=== PATIENT | female | born 1975 | race Caucasian/White ===

== ENCOUNTER 2016-12-27 07:07 | Inpatient (IN) | payer BC ==
[2016-12-27] VITALS (7 sets, daily range): BP systolic 106–123; BP diastolic 62–73; PULSE 76–87; TEMP 36.8–36.9; O2SAT 96–99; Ht 165.1 cm; Wt 89.2 kg
[~2016-12-27] VITALS: Ht 165.1 cm; Wt 89.2 kg
[~2016-12-27 07:07] MED LIST: CITA40TA12 PO; IBUP-1428 PO; INSPMPNVLG; NVLGI SC; SIMV20TA2 PO
[2016-12-27] MEDS ORDERED: SODIUM CHLORIDE 0.9% 1000ML 1,000 ML IV ONE ×2 (07:30→08:30)
[2016-12-27] MEDS ORDERED: ALBUT/IPRATROP 3MG/0.5MG NEB 3 ML VIAL INH STA (07:36)
[2016-12-27] MEDS ORDERED: ONDANSETRON INJ 2 MG/ML 2 ML VIAL IV STA (07:36)
[2016-12-27 07:55] LABS: BASO % 0.2 %; BASO ABS # 0.04 K/uL (0-0.2); COMPLETE YES; EOS % 0.5 %; HEMATOCRIT 42.2 % (37-47); IG% 0.3 %; LYMPH % 12.2 %; LYMPH ABS # 2.28 K/uL (1.2-3.4); MEAN CORPUSCULAR HEMOGLOBIN 31.3 pg (25-34); MEAN CORPUSCULAR HGB CONC 33.6 g/dl (32-36); MONO % 3.9 %; NEUT % 82.9 %; PLATELET COUNT 176 K/uL (130-400); RED BLOOD COUNT 4.54 M/uL (4.2-5.4); WHITE BLOOD COUNT 18.63 K/uL (4.8-10.8)
[2016-12-27] MEDS ORDERED: INSULIN HUMAN REGULAR PER UNIT 10 UNITS in SYRINGE 0 ML IV STA (08:03)
[2016-12-27 08:08] LABS: URINE APPEARANCE CLEAR (CLEAR); URINE BILIRUBIN NEG (NEG); URINE COLOR YELLOW; URINE NITRITE NEG (NEG); URINE SPECIFIC GRAVITY 1.034 (1.000-1.030); UROBILINOGEN NEG (NEG)
[2016-12-27 08:09] LABS: BUN/CREATININE RATIO 14.1 (10-20); CREATININE 1.1 mg/dl (0.60-1.20); MAGNESIUM 2.1 mg/dl (1.8-2.4); POTASSIUM 4.9 mmol/L (3.5-5.1)
[2016-12-27 08:12] LABS: PHOSPHORUS 3.2 mg/dl (2.5-4.9)
[2016-12-27 08:12] LABS: MANUAL MICROSCOPIC REQUIRED? NO; REVIEW REQ? NO
--- NOTE | 2016-12-27 08:20 | DIAGNOSTIC IMAGING REPORT ---
CHEST 2 VIEWS ROUTINE CLINICAL HISTORY: cough, wheezing HYPERGLYCEMIA COMPARISON STUDY: 10/01/2015 FINDINGS: The cardiac and mediastinal contours are normal. There is no evidence of focal pulmonary consolidation. There is no evidence of failure. No pleural effusions are visualized.[ IMPRESSION: No active disease in the chest. Electronically signed by: Cipriano Mcfarlane M.D. 12/27/2016 8:19 AM Dictated Date/Time: 12/27/2016 8:14 AM
[2016-12-27] MEDS ORDERED: PIPERACILLIN/TAZOBACTAM 4.5 GM/100ML D5W IV STA (08:27)
[2016-12-27] MEDS ORDERED: DAPTOMYCIN IV ONE (08:30)
[2016-12-27] MEDS ORDERED: SODIUM CHLORIDE 0.9% IV ONE (08:30)
[2016-12-27 08:46] LABS: BETA-HYDROXYBUTYRATE 29.15 mg/dL (0.2-2.81)
[2016-12-27 09:08] LABS: VEN BLD GAS O2 SATURATION < 60.0 %; VEN BLOOD GAS BASE EXCESS -7.5 mEq/L; VENOUS BLOOD GAS PCO2 44 mmHg (38.0-50.0); VENOUS BLOOD GAS PO2 32 mmHg
[2016-12-27] MEDS ORDERED: INSULIN IV INFUSION PROTOCOL STA (09:26)
[2016-12-27] MEDS ORDERED: SODIUM CHLORIDE 0.9% 1000ML 1,000 ML IV SCH (09:26)
[2016-12-27] MEDS ORDERED: MODERATE STRESS LEVEL ONE (09:30)
[2016-12-27] MEDS ORDERED: ACETAMINOPHEN 325 MG TAB PO PRN (09:30)
[2016-12-27] MEDS ORDERED: DKA GOAL RANGE 150-250 mg/dl 1 EA ONE (09:30)
[2016-12-27] MEDS ORDERED: PHARMACY GLYCEMIC MGMT CONSULT PRN (09:30)
--- NOTE | 2016-12-27 09:57 | History and Physical ---
History & Physical Date & Time of Service: Dec 27, 2016 at 09:45 Chief Complaint: Dka,Freq Urination,Pimentel,High Blood Sugar Primary Care Physician: Benigno Park M.D. History of Present Illness Source: patient, clinic records This is a 41 year old female with a PMH of type 1 DM on an insulin pump, hx. of tobacco use disorder with recent cessation about one week prior to arrival presents to the ER with elevated blood sugars, excessive urination, excessive thirst. Patient states that last evening her blood sugars were less than 200; and then a recheck later in the evening; her pump stated that the sugars were unreadable due to being too high. Denies feeling ill prior to this, but stated that she had been excessively urinating all night and very thirsty having to drink lots of water. Other than the polyuria and polydipsia, no other complaints at this time. Upon presentation, she was given 2L of fluid, given 10 units of regular insulin and her BSGs are still >400. Past Medical/Surgical History Medical Problems: (1) Bronchitis Status: Chronic (2) section Status: Resolved (3) Diabetes Status: Chronic (4) DKA (diabetic ketoacidoses) Status: Resolved (5) Hysterectomy Status: Resolved (6) Pneumonia Status: Chronic Family History FH: cancer FH: gallbladder disease FH: lung disease Social History Smoking Status: Former Smoker Marital Status: Occupational Status: unemployed Allergies Coded Allergies: Bupropion (Verified Allergy, Mild, ., 12/27/16) Home Medications Scheduled Citalopram Hydrobromide (Celexa), 40 MG PO DAILY Insulin Aspart (novoLOG INSULIN PUMP ), 1 EA N/A ACHS Simvastatin (Zocor), 20 MG PO DAILY Review of Systems Constitutional: No fever, No chills, No sweats, No weight loss, No weakness, No fatigue Eyes: No worsening of vision ENT: No hearing loss Respiratory: No cough, No sputum, No shortness of breath Cardiovascular: No chest pain, No edema Abdomen: + nausea, No pain, No vomiting, No diarrhea, No constipation Genitourinary - Female: + urinary frequency, No dysuria, No urinary urgency, No urinary incontinence, No urinary retention, No hematuria Neurologic: + numbness/tingling (numbness at L big toe) Endocrine: + excessive thirst, + excessive urination, No fatigue Hematologic / Lymphatic: No abnormal bleeding/bruising Integumentary: No rash, No new/changing skin lesions Allergic / Immunologic: No environmental allergies, No seasonal allergies Physical Exam Vital Signs Date Time Temp Pulse Resp B/P (MAP) Pulse Ox O2 Delivery O2 Flow Rate FiO2 12/27/16 09:23 99 Room Air 12/27/16 09:01 90 20 133/73 99 Room Air 12/27/16 08:48 37.1 12/27/16 07:09 36.6 85 16 143/81 97 Room Air General Appearance: no apparent distress Head: normocephalic, atraumatic Eyes: normal inspection ENT: hearing grossly normal Respiratory/Chest: chest non-tender, lungs clear, normal breath sounds, no respiratory distress, no accessory muscle use Cardiovascular: regular rate, rhythm, no edema, no gallop, no JVD, no murmur, normal peripheral pulses Abdomen/GI: normal bowel sounds, non tender, soft Back: no muscle spasm Extremities/Musculoskelatal: no calf tenderness, normal capillary refill, no pedal edema, + pertinent finding (+pump on her R upper tricep) Neurologic/Psych: 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 nml as tested, no motor/sensory deficits, alert, normal mood/affect, oriented x 3 Diagnostics Laboratory Results Results Past 24 Hours Test 12/27/16 07:23 12/27/16 07:30 12/27/16 07:35 12/27/16 08:45 Range/Units Bedside Glucose > 600 538 70-90 mg/dl White Blood Count 18.63 4.8-10.8 K/uL Red Blood Count 4.54 4.2-5.4 M/uL Hemoglobin 14.2 12.0-16.0 g/dL Hematocrit 42.2 37-47 % Mean Corpuscular Volume 93.0 80-100 fL Mean Corpuscular Hemoglobin 31.3 25-34 pg Mean Corpuscular Hemoglobin Concent 33.6 32-36 g/dl Platelet Count 176 130-400 K/uL Mean Platelet Volume 13.0 7.4-10.4 fL Neutrophils (%) (Auto) 82.9 % Lymphocytes (%) (Auto) 12.2 % Monocytes (%) (Auto) 3.9 % Eosinophils (%) (Auto) 0.5 % Basophils (%) (Auto) 0.2 % Neutrophils # (Auto) 15.44 1.4-6.5 K/uL Lymphocytes # (Auto) 2.28 1.2-3.4 K/uL Monocytes # (Auto) 0.72 0.11-0.59 K/uL Eosinophils # (Auto) 0.10 0-0.5 K/uL Basophils # (Auto) 0.04 0-0.2 K/uL RDW Standard Deviation 43.5 36.4-46.3 fL RDW Coefficient of Variation 12.7 11.5-14.5 % Immature Granulocyte % (Auto) 0.3 % Immature Granulocyte # (Auto) 0.05 0.00-0.02 K/uL Sodium Level 124 136-145 mmol/L Potassium Level 4.9 3.5-5.1 mmol/L Chloride Level 92 98-107 mmol/L Carbon Dioxide Level 18 21-32 mmol/L Anion Gap 14.0 3-11 mmol/L Blood Urea Nitrogen 16 7-18 mg/dl Creatinine 1.10 0.60-1.20 mg/dl Est Creatinine Clear Calc Drug Dose 72.5 ml/min Estimated GFR () 71.2 Estimated GFR (Non- 61.4 BUN/Creatinine Ratio 14.1 10-20 Random Glucose 718 70-99 mg/dl Calcium Level 9.0 8.5-10.1 mg/dl Phosphorus Level 3.2 2.5-4.9 mg/dl Magnesium Level 2.1 1.8-2.4 mg/dl Total Bilirubin 0.7 0.2-1 mg/dl Direct Bilirubin 0.2 0-0.2 mg/dl Aspartate Amino Transf (AST/SGOT) 13 15-37 U/L Alanine Aminotransferase (ALT/SGPT) 15 12-78 U/L Alkaline Phosphatase 60 45-117 U/L Total Creatine Kinase 71 26-192 U/L Total Protein 7.0 6.4-8.2 gm/dl Albumin 4.0 3.4-5.0 gm/dl Beta-Hydroxybutyric Acid 29.15 0.2-2.81 mg/dL Urine Color YELLOW Urine Appearance CLEAR CLEAR Urine pH 5.0 4.5-7.5 Urine Specific [place] 1.034 1.000-1.030 Urine Protein NEG NEG Urine Glucose (UA) 3+ NEG Urine Ketones 2+ NEG Urine Occult Blood NEG NEG Urine Nitrite NEG NEG Urine Bilirubin NEG NEG Urine Urobilinogen NEG NEG Urine Leukocyte Esterase NEG NEG Test 12/27/16 08:53 12/27/16 08:58 12/27/16 08:59 12/27/16 09:12 Range/Units Venous Blood pH 7.26 7.36-7.41 Venous Blood Partial Pressure CO2 44 38.0-50.0 mmHg Venous Blood Partial Pressure O2 32 mmHg Venous Blood HCO3 19 mmol/L Venous Blood Oxygen Saturation < 60.0 % Venous Blood Base Excess -7.5 mEq/L Bedside Glucose 510 490 473 70-90 mg/dl Test 12/27/16 09:26 12/27/16 09:28 Range/Units Bedside Glucose 432 70-90 mg/dl Microbiology Results 12/27/16 Blood Culture, Received Pending 12/27/16 Blood Culture, Received Pending Diagnostic Radiology CHEST 2 VIEWS ROUTINE CLINICAL HISTORY: cough, wheezing HYPERGLYCEMIA COMPARISON STUDY: 10/01/2015 FINDINGS: The cardiac and mediastinal contours are normal. There is no evidence of focal pulmonary consolidation. There is no evidence of failure. No pleural effusions are visualized.[ IMPRESSION: No active disease in the chest. EKG Normal sinus rhythm Normal ECG Impression Assessment and Plan This is a 41 year old female with a PMH of type 1 diabetes on an insulin pump - presents with DKA Diabetic Ketoacidosis patient presents with BSGs >600, serum and urinary ketones, +acidosis on ABG, mildly elevated anion gap insulin pump is turned off for now she has been given 2L of fluid in the ER given 10 units of regular insulin will start an insulin pump monitor PRP, Mg, Phos, and venous pH q2 hours for now start fluids, NS + 20meq KCl at 150mL/hr once anion gap closes, we can start clears and advance as tolerated goal BSGs 150-250 pharmacy glycemic control to help transition from insulin drip back to her pump check Ha1c diabetic education Leukocytosis this seems more likely due to significant dehydration and volume depletion CXR is negative UA shows no sign of infection blood cultures pending received Dapto + Zosyn in the ED will hold off on abx. and recheck CBC after fluid resuscitation DVT ppx subq heparin FULL CODE Advanced Directives Existing Living Will: No Existing Power of Bar Examiner: No VTE Prophylaxis VTE Risk Assessment Done? Y/N: Yes Risk Level: Moderate
[2016-12-27 10:11] LABS: ALLEN TEST POS (POS); ARTERIAL BLD GAS O2 SATURATION 98.7 % (90-95); ARTERIAL BLOOD GAS BASE EXCESS -8.3 mEq/L (-9-1.8); ARTERIAL BLOOD GAS HCO3 16 mmol/L (19-24); ARTERIAL BLOOD GAS PO2 126 mm/Hg (80-95); ARTERIAL BLOOD GAS pH 7.36 (7.35-7.45); O2 ADMINISTRATION RA
[2016-12-27] MEDS ORDERED: GLUCOSE 40% GEL 15 GM TUBE PO PRN (10:15)
[2016-12-27] MEDS ORDERED: GLUCAGON FOR INJ 1 MG VIAL SQ PRN (10:15)
[2016-12-27] MEDS ORDERED: GLUCOSE 10 TABS/TUBE PO PRN (10:15)
[2016-12-27] MEDS ORDERED: DEXTROSE 50% 50 ML SYR IV PRN (10:15)
[2016-12-27] MEDS ORDERED: INSULIN HUMAN REGULAR IV BOLUS 2 UNIT in SYRINGE 0 ML IV SCH (10:30)
[2016-12-27] MEDS: INSULIN REGULAR 250 UNITS in SODIUM CHLORIDE 0.9% 250ML 250 ML IV SCH ×2 (10:31→15:33)
[2016-12-27 10:46] LABS: PREG INTERNAL NEGATIVE QC NEG CLEAR BACKGROUND; PREG INTERNAL POSITIVE QC POS CONTROL LINE
[2016-12-27 11:00] LABS: ESTIMATED AVERAGE GLUCOSE 200 mg/dl; HA1C FLAG Normal (Normal)
[2016-12-27] MEDS ORDERED: PENDING D5 1/2NS+20mEq KCL IVF SCH (11:00)
[2016-12-27] MEDS: PENDING NSS+20mEq KCL IVF SCH ×2 (11:00→13:00)
[2016-12-27] MEDS: INSULIN ASPART 100 UNITS/ML 3 ML PEN SC SCH ×2 (13:00→18:06)
[2016-12-27 13:01] LABS: BUN/CREATININE RATIO 12.7 (10-20); CALCIUM 7.8 mg/dl (8.5-10.1); PHOSPHORUS 1.6 mg/dl (2.5-4.9); POTASSIUM 4.1 mmol/L (3.5-5.1)
[2016-12-27] MEDS ORDERED: D5W AND 1/2NSS + 20MEQ KCL 1,000 ML IV SCH (13:30)
[2016-12-27 14:27] LABS: HEMATOCRIT 34.9 % (37-47); MEAN CELL VOLUME 91.1 fL (80-100); MEAN CORPUSCULAR HEMOGLOBIN 30.8 pg (25-34); MEAN CORPUSCULAR HGB CONC 33.8 g/dl (32-36); MEAN PLATELET VOLUME 11.8 fL (7.4-10.4); PLATELET COUNT 139 K/uL (130-400); RED BLOOD COUNT 3.83 M/uL (4.2-5.4); WHITE BLOOD COUNT 9.15 K/uL (4.8-10.8)
[2016-12-27] MEDS ORDERED: SODIUM PHOSPHATE 3 MMOL/1 ML INFUSION IV STA (14:58)
[2016-12-27] MEDS ORDERED: SODIUM PHOSPHATE INJ 15 MMOL in SODIUM CHLORIDE 0.9% 250ML 250 ML IV SCH (15:30)
--- NOTE | 2016-12-27 15:30 | Pharmacy Progress Note ---
Glycemic Control Intl Consult Date of Service Dec 27, 2016. Scope Glycemic Pharmacist consulted by Dr Aly on 12/27/16 for glycemic control and to write orders per [facility] inpatient glycemic control protocol Objective Weight (Kilograms): 88.500 Accuchecks BSG (last 24hrs): Test 12/27/16 07:23 12/27/16 07:30 12/27/16 08:45 12/27/16 08:59 Bedside Glucose > 600 mg/dl (70-90) 538 mg/dl (70-90) 490 mg/dl (70-90) Random Glucose 718 mg/dl (70-99) Test 12/27/16 09:12 12/27/16 09:28 12/27/16 09:57 12/27/16 10:23 Bedside Glucose 473 mg/dl (70-90) 432 mg/dl (70-90) 409 mg/dl (70-90) 406 mg/dl (70-90) Test 12/27/16 10:47 12/27/16 11:06 12/27/16 12:21 Bedside Glucose 393 mg/dl (70-90) 334 mg/dl (70-90) Random Glucose 275 mg/dl (70-99) Laboratory Data (last 24hrs) Test 12/27/16 07:30 12/27/16 12:21 12/27/16 14:03 Anion Gap 14.0 mmol/L 7.0 mmol/L BUN/Creatinine Ratio 14.1 12.7 Blood Urea Nitrogen 16 mg/dl 13 mg/dl Creatinine 1.10 mg/dl 1.00 mg/dl Hemoglobin A1c 8.6 % Potassium Level 4.9 mmol/L 4.1 mmol/L Sodium Level 124 mmol/L 136 mmol/L White Blood Count 18.63 K/uL 9.15 K/uL Red Blood Count 4.54 M/uL Hemoglobin 14.2 g/dL Hematocrit 42.2 % Mean Corpuscular Volume 93.0 fL Mean Corpuscular Hemoglobin 31.3 pg Mean Corpuscular Hemoglobin Concent 33.6 g/dl Platelet Count 176 K/uL Mean Platelet Volume 13.0 fL Neutrophils (%) (Auto) 82.9 % Lymphocytes (%) (Auto) 12.2 % Monocytes (%) (Auto) 3.9 % Eosinophils (%) (Auto) 0.5 % Basophils (%) (Auto) 0.2 % Neutrophils # (Auto) 15.44 K/uL Lymphocytes # (Auto) 2.28 K/uL Monocytes # (Auto) 0.72 K/uL Eosinophils # (Auto) 0.10 K/uL Basophils # (Auto) 0.04 K/uL HbA1c Test 12/27/16 07:30 Hemoglobin A1c 8.6 % (4.5-5.6) H Recent Pertinent Medications Outpatient Anti-diabetic Regimen: * Novolog pump * Basal rate: 1.35 units/hr * Bolus: CF 35 from 1700 - 0000, CF 40 from [id number] * Goal range: 80-140 mg/dL * pt reports good BSG control the previous 48 hour prior to admission The patient is currently receiving: * IV insulin infusion Risk Factors for Insulin Resistance: * Infection: Dapto + Zosyn in ER * IVF: D5 1/2 NS + 20 meq KCL @ 150 ml/hr Assessment & Plan ASSESSMENT: * 41 yr old T1DM female on Novolog insulin pump as an outpatient admitted with DKA. * BSG > 600 mg/dL upon arrival, AG elevated (14), betahydroxybutyric acid elevated (29), 2+ ketones in urine * Patient was started on an IV insulin infusion in the ER. Pharmacy was consulted to help transition from insulin infusion back to insulin pump. PLAN FOR INPATIENT GLYCEMIC CONTROL: * Continue IV insulin infusion per moderate stress as previously ordered * Will likely transition back to Novolog pump on 9/2 am * Please note that the plan above was derived based on current level of insulin resistance and hospital stress. These recommendations are appropriate for inpatient admission only. Plan of care upon discharge will need to be reassessed to avoid potential outpatient hypo/hyperglycemia. Thank you.
--- NOTE | 2016-12-27 15:35 | EMERGENCY ROOM VISIT NOTE ---
ED Visit Note First contact with patient: 07:16 Chief Complaint: My blood sugars over 400. History of Present Illness: Ms. Boothe is a 41-year-old white female who ambulates into the ED complaining of hyperglycemia. Historically patient reports she is a type I diabetic and has been so since she' s been at teen. Patient reports she's been feeling well over the last few days and admits to stop smoking tobacco last week. She reports she went to bed at 8:00 last night and before bedtime she checked her blood sugar and it was 125. She received notification from her insulin pump at approximately 1 PM that her blood sugar was elevated and recommended that 7 units of NovoLog be taken. She reports at that time she felt like she was thirsty, her mouth was dry. She did take insulin go back to bed. Once again she was awoken from sleep from notification of her insulin pump that her sugar was over 400 and was recommended that she take 12 units of insulin; she reports he took 12 units of NovoLog and once again went back to bed. She got up for work at approximately 5 PM and once again the glucometer reading was HIGH and she took 10 additional units of NovoLog. She reports she is not able to control her blood sugar. Her current symptoms include dry mouth, increased urination, nausea and a mild headache. She describes her head as a throbbing sensation. She does report her headaches global but more pronounced in the bifrontal area. She rates her discomfort 5/ 10. Her pain is nonradiating. She is not identified any aggravating or alleviating factors related to the pain. She has not taken any medications for her pain prior to arrival at the hospital. Patient denies any associated symptoms including dizziness, lightheadedness, abnormal neurological symptoms, recent head trauma, neck pain/stiffness, chest pain, shortness of breath, abdominal pain, extremity pain, joint pains, diarrhea , constipation, urinary symptoms, hematuria. Review of Systems: As noted above in history of present illness. All body systems were reviewed and found to be negative as noted above. Past Medical History: As previously noted, bronchitis, pneumonia, status post section and hysterectomy. Current Medications: Medications Dose Route/Sig Max Daily Dose Days Date Category Celexa (Citalopram Hydrobromide) 40 Mg Tab 40 Mg PO DAILY 10/02/15 Reported Zocor (Simvastatin) 20 Mg Tab 20 Mg PO DAILY 10/02/15 Reported novoLOG INSULIN PUMP (Insulin Aspart) 1 Ea Inj 1 Ea N/A ACHS 10/06/13 Rx Allergies to Medications: Bupropion. Social History: Patient is currently employed; she feels safe in her home environment; she denies tobacco use. Physical Examination: Vital Signs: Date Time Temp Pulse Resp B/P (MAP) Pulse Ox O2 Delivery O2 Flow Rate FiO2 12/27/16 09:23 99 Room Air 12/27/16 09:01 90 20 133/73 99 Room Air 12/27/16 08:48 37.1 12/27/16 07:09 36.6 85 16 143/81 97 Room Air GENERAL: 41-year-old female in mild to moderate distress due to pain, nontoxic- appearing, afebrile and hemodynamically stable. NEUROLOGICAL: Awake, alert and oriented to person, place and time. Answering questions appropriately and following commands. Normal gait. Good hand eye coordination. No focal motor or sensory deficits. SKIN: Warm, dry and pink. No soft tissue eruptions or trauma noted. HEENT: Atraumatic and normocephalic. PERRLA. Sclera white and conjunctiva pink. No drainage from naris. Oral cavity and lips are dry. Airway is patent. Pharynx is nonerythematous or edematous. Speech normal. No lymphadenopathy. Trachea midline. No jugular venous distention. BACK: No tenderness over the bony spine. No CVA tenderness. THORAX: Lungs sounds show scattered wheezing and slight decreased air movement in the right lower lung. Symmetrical chest wall movements. No rales or rhonchi. HEART: Regular rate and rhythm. No gallops, rubs or murmurs are appreciated. ABDOMEN: Flat, soft and nontender. Positive bowel sounds in all quadrants. No guarding, rigidity or organomegaly. EXTREMITIES: Moves all extremities well on command and with purpose. All distal neurovascular statuses are intact and equal bilaterally. ED Course: Patient is assessed as noted above. Patient's medication list was reviewed. Laboratory Testing: Test 12/27/16 07:23 12/27/16 07:30 12/27/16 07:35 12/27/16 08:45 Range/Units Bedside Glucose > 600 538 70-90 mg/dl White Blood Count 18.63 4.8-10.8 K/uL Red Blood Count 4.54 4.2-5.4 M/uL Hemoglobin 14.2 12.0-16.0 g/dL Hematocrit 42.2 37-47 % Mean Corpuscular Volume 93.0 80-100 fL Mean Corpuscular Hemoglobin 31.3 25-34 pg Mean Corpuscular Hemoglobin Concent 33.6 32-36 g/dl Platelet Count 176 130-400 K/uL Mean Platelet Volume 13.0 7.4-10.4 fL Neutrophils (%) (Auto) 82.9 % Lymphocytes (%) (Auto) 12.2 % Monocytes (%) (Auto) 3.9 % Eosinophils (%) (Auto) 0.5 % Basophils (%) (Auto) 0.2 % Neutrophils # (Auto) 15.44 1.4-6.5 K/uL Lymphocytes # (Auto) 2.28 1.2-3.4 K/uL Monocytes # (Auto) 0.72 0.11-0.59 K/uL Eosinophils # (Auto) 0.10 0-0.5 K/uL Basophils # (Auto) 0.04 0-0.2 K/uL RDW Standard Deviation 43.5 36.4-46.3 fL RDW Coefficient of Variation 12.7 11.5-14.5 % Immature Granulocyte % (Auto) 0.3 % Immature Granulocyte # (Auto) 0.05 0.00-0.02 K/uL Sodium Level 124 136-145 mmol/L Potassium Level 4.9 3.5-5.1 mmol/L Chloride Level 92 98-107 mmol/L Carbon Dioxide Level 18 21-32 mmol/L Anion Gap 14.0 3-11 mmol/L Blood Urea Nitrogen 16 7-18 mg/dl Creatinine 1.10 0.60-1.20 mg/dl Est Creatinine Clear Calc Drug Dose 72.5 ml/min Estimated GFR () 71.2 Estimated GFR (Non- 61.4 BUN/Creatinine Ratio 14.1 10-20 Random Glucose 718 70-99 mg/dl Estimated Average Glucose 200 mg/dl Hemoglobin A1c 8.6 4.5-5.6 % Calcium Level 9.0 8.5-10.1 mg/dl Phosphorus Level 3.2 2.5-4.9 mg/dl Magnesium Level 2.1 1.8-2.4 mg/dl Total Bilirubin 0.7 0.2-1 mg/dl Direct Bilirubin 0.2 0-0.2 mg/dl Aspartate Amino Transf (AST/SGOT) 13 15-37 U/L Alanine Aminotransferase (ALT/SGPT) 15 12-78 U/L Alkaline Phosphatase 60 45-117 U/L Total Creatine Kinase 71 26-192 U/L Total Protein 7.0 6.4-8.2 gm/dl Albumin 4.0 3.4-5.0 gm/dl Beta-Hydroxybutyric Acid 29.15 0.2-2.81 mg/dL Human Chorionic Gonadotropin, Qual NEG NEG Urine Color YELLOW Urine Appearance CLEAR CLEAR Urine pH 5.0 4.5-7.5 Urine Specific [place] 1.034 1.000-1.030 Urine Protein NEG NEG Urine Glucose (UA) 3+ NEG Urine Ketones 2+ NEG Urine Occult Blood NEG NEG Urine Nitrite NEG NEG Urine Bilirubin NEG NEG Urine Urobilinogen NEG NEG Urine Leukocyte Esterase NEG NEG Test 12/27/16 08:53 12/27/16 08:59 12/27/16 09:12 12/27/16 09:28 Range/Units Venous Blood pH 7.26 7.36-7.41 Venous Blood Partial Pressure CO2 44 38.0-50.0 mmHg Venous Blood Partial Pressure O2 32 mmHg Venous Blood HCO3 19 mmol/L Venous Blood Oxygen Saturation < 60.0 % Venous Blood Base Excess -7.5 mEq/L Bedside Glucose 490 473 432 70-90 mg/dl Blood Culture: Pending Chest X-Ray: Read by myself and the radiologist showing no acute infiltrates, effusions or pneumothorax. Normal heart silhouette and bony anatomy. EKG: Was read by myself and reviewed with Dr. Brown; shows normal sinus rhythm with a ventricular rate of 80 bpm. Normal axis, intervals and complexes. No acute ST changes indicating ischemia, injury or infarction. Patient was hydrated with at least 2 L of normal saline and she received an albuterol/Atrovent nebulizer breathing treatment for her wheezing, 4 mg of Zofran IV for nausea, 10 units of Regular Insulin IV for her hyperglycemia and to cover for possible infections related to her leukocytosis she was given 4.5 g of Zosyn and 530 mg of daptomycin IV. Patient was reassessed multiple times to her stay in emergency department; after her breathing treatment and lungs are reassessed and wheezing was no longer present and air movement in all ortiz increased but also in her bases. Patient's case was reviewed with Dr. Brown; we agreed on diagnostic approach , treatment, disposition and plan. Patient's case was consulted with case management and Dr. Zeng, hospitalist , for medical observation/admission. Patient was educated about today's findings. Clinical Impression: Diabetic ketoacidosis. Leukocytosis. Decision-Making: Initially my differential diagnosis I considered pneumonia, metabolic acidosis, septic shock, alcohol ketoacidosis, electrolyte abnormalities and other causes. Disposition and Plan: Patient be brought in the hospital for observation/ admission by the [facility] hospitalist; please see their notes and orders for final disposition and plan.
[2016-12-27 15:50] LABS: INR 0.9 (0.9-1.1); PROTHROMBIN TIME (PATIENT) 10.1 SECONDS (9.0-12.0)
[2016-12-27 16:45] LABS: BUN/CREATININE RATIO 10.8 (10-20); CALCIUM 7.9 mg/dl (8.5-10.1); CREATININE 0.92 mg/dl (0.60-1.20); MAGNESIUM 2.1 mg/dl (1.8-2.4); POTASSIUM 4.7 mmol/L (3.5-5.1)
[2016-12-27 16:51] LABS: PHOSPHORUS 2.4 mg/dl (2.5-4.9)
[2016-12-27] MEDS ORDERED: INSULIN ASPART 100 UNITS/ML VIAL SC PRN (18:15)
[2016-12-27] MEDS: HEPARIN SOD 5000 UNIT/0.5 ML CARP SQ SCH (20:56)
[2016-12-27] MEDS ORDERED: NovoLOG INSULIN PUMP SCH (21:00)
[2016-12-27 21:10] LABS: BUN/CREATININE RATIO 11.5 (10-20); CALCIUM 7.9 mg/dl (8.5-10.1); CREATININE 1.1 mg/dl (0.60-1.20)
[2016-12-27 21:11] LABS: PHOSPHORUS 2.7 mg/dl (2.5-4.9)
[2016-12-27] MEDS: NovoLOG INSULIN PUMP SCH (23:58)
[2016-12-28] VITALS: O2SAT 96
[2016-12-28 00:12] LABS: BUN/CREATININE RATIO 14.7 (10-20); CALCIUM 8.1 mg/dl (8.5-10.1); CREATININE 0.85 mg/dl (0.60-1.20); POTASSIUM 3.9 mmol/L (3.5-5.1)
[2016-12-28 04:00] VITALS: O2SAT 96
[2016-12-28] MEDS: NovoLOG INSULIN PUMP SCH (04:00)
[2016-12-28 04:32] VITALS: BP 132/76; PULSE 90; TEMP 36.7; O2SAT 96
[2016-12-28 04:40] LABS: BUN/CREATININE RATIO 14.2 (10-20); CALCIUM 8.1 mg/dl (8.5-10.1); CREATININE 0.74 mg/dl (0.60-1.20); POTASSIUM 4.1 mmol/L (3.5-5.1)
[2016-12-28] MEDS: HEPARIN SOD 5000 UNIT/0.5 ML CARP SQ SCH (05:59)
[2016-12-28 07:33] VITALS: BP 117/70; PULSE 73; TEMP 36.8; O2SAT 92
[2016-12-28 08:00] VITALS: O2SAT 94
[2016-12-28] MEDS ORDERED: FLUCONAZOLE 50 MG TAB PO ONE (08:00)
--- NOTE | 2016-12-28 08:40 | Progress Note ---
Subjective Date of Service: Dec 28, 2016. Subjective Pt evaluation today including: conversation w/ patient, physical exam, lab review, review of studies, review of inpatient medication list Saw/examined the patient in room 282 Patient is doing well; no problems/issues to note Patient has been transitioned to insulin pump - it is functioning well BSGs much better controlled now Denies any nausea/vomiting, no urinary symptoms, no fevers/chills - mild ongoing cough since smoking cessation about 1 week prior Problem List Medical Problems: (1) Hyperglycemia Status: Acute Review of Systems Constitutional: No fever, No chills, No weakness Respiratory: No cough, No sputum, No shortness of breath Cardiac: No chest pain Abdomen: No pain, No nausea, No vomiting, No diarrhea Heme: No abnormal bleeding/bruising Medications Current Inpatient Medications Medications (Trade) Dose Ordered Sig/Elio Route Start Time Stop Time Status Last Admin Dose Admin Heparin Sodium (Porcine) (Heparin Sq 5000 Unit/0.5ml) 5,000 unit Q8 SQ 12/27/16 22:00 01/26/17 21:59 Acetaminophen (Tylenol Tab) 650 mg Q4H PRN PO 12/27/16 09:30 01/26/17 09:29 Miscellaneous Information (Consult Glycemic Management Pharmacy) 1 ea UD PRN N/A 12/27/16 09:30 01/26/17 09:29 Citalopram Hydrobromide (celeXA TAB) 40 mg DAILY PO 12/28/16 09:00 01/27/17 08:59 12/28/16 07:43 40 MG Simvastatin (Zocor Tab) 20 mg DAILY PO 12/28/16 09:00 01/27/17 08:59 12/28/16 07:43 20 MG Glucose (Glucose 40% Gel) UD PRN PO 12/27/16 10:15 01/26/17 10:14 Glucose (Glucose Chew Tab) 1 tabs UD PRN PO 12/27/16 10:15 01/26/17 10:14 Dextrose (Dextrose 50% 50ML Syringe) 50 ml UD PRN IV 12/27/16 10:15 01/26/17 10:14 Glucagon (Glucagon Inj) 1 mg UD PRN SQ 12/27/16 10:15 01/26/17 10:14 Insulin Aspart (novoLOG INSULIN PUMP) 1 ea ACHS N/A 12/27/16 21:00 01/26/17 20:59 12/27/16 21:21 1 EA Insulin Aspart (novoLOG ASPART) SLIDING SCALE PRN PRN SC 12/27/16 18:15 01/26/17 18:14 Objective Vital Signs Date Time Temp Pulse Resp B/P (MAP) Pulse Ox O2 Delivery O2 Flow Rate FiO2 12/28/16 07:33 36.8 73 16 117/70 (86) 92 Room Air 12/28/16 04:32 36.7 90 20 132/76 (94) 96 Room Air 12/28/16 04:00 96 Room Air 12/28/16 00:00 96 Room Air 12/27/16 23:01 36.8 87 18 106/62 (77) 97 Room Air 12/27/16 20:00 96 Room Air 12/27/16 19:33 36.8 82 22 121/73 (89) 97 Room Air 12/27/16 16:00 96 Room Air 12/27/16 15:36 36.9 76 18 115/65 (82) 96 Room Air 12/27/16 12:00 Room Air 12/27/16 11:42 36.8 76 16 123/69 (87) Room Air 12/27/16 11:12 74 16 119/56 100 12/27/16 11:11 74 20 119/56 98 Room Air 12/27/16 10:05 68 20 119/56 96 Room Air 12/27/16 09:23 99 Room Air 12/27/16 09:01 90 20 133/73 99 Room Air 12/27/16 08:48 37.1 Physical Exam General Appearance: no apparent distress Respiratory/Chest: no respiratory distress, no accessory muscle use Cardiovascular: regular rate, rhythm Extremities: normal inspection (insulin pump placed on L arm now) Neurologic/Psychiatric: no motor/sensory deficits, alert, normal mood/affect Laboratory Results Last 24 Hours Test 12/27/16 08:45 12/27/16 08:53 12/27/16 08:59 12/27/16 09:12 Bedside Glucose 538 mg/dl 490 mg/dl 473 mg/dl Venous Blood pH 7.26 Venous Blood Partial Pressure CO2 44 mmHg Venous Blood Partial Pressure O2 32 mmHg Venous Blood HCO3 19 mmol/L Venous Blood Oxygen Saturation < 60.0 % Venous Blood Base Excess -7.5 mEq/L Test 12/27/16 09:28 12/27/16 09:54 12/27/16 09:57 12/27/16 10:23 Bedside Glucose 432 mg/dl 409 mg/dl 406 mg/dl Arterial Blood pH 7.36 Arterial Blood Partial Pressure CO2 29 mmHg Arterial Blood Partial Pressure O2 126 mm/Hg Arterial Blood HCO3 16 mmol/L Arterial Blood Oxygen Saturation 98.7 % Arterial Blood Base Excess -8.3 mEq/L Arterial Blood Gas Delivery RA Corky Test POS Test 12/27/16 10:47 12/27/16 11:06 12/27/16 12:04 12/27/16 12:21 Bedside Glucose 393 mg/dl 334 mg/dl 280 mg/dl Sodium Level 136 mmol/L Potassium Level 4.1 mmol/L Chloride Level 107 mmol/L Carbon Dioxide Level 22 mmol/L Anion Gap 7.0 mmol/L Blood Urea Nitrogen 13 mg/dl Creatinine 1.00 mg/dl Est Creatinine Clear Calc Drug Dose 79.7 ml/min Estimated GFR () 79.9 Estimated GFR (Non- 69.0 BUN/Creatinine Ratio 12.7 Random Glucose 275 mg/dl Calcium Level 7.8 mg/dl Phosphorus Level 1.6 mg/dl Magnesium Level 2.0 mg/dl Test 12/27/16 12:22 12/27/16 13:08 12/27/16 14:03 12/27/16 14:13 Venous Blood pH 7.36 Bedside Glucose 245 mg/dl 188 mg/dl White Blood Count 9.15 K/uL Red Blood Count 3.83 M/uL Hemoglobin 11.8 g/dL Hematocrit 34.9 % Mean Corpuscular Volume 91.1 fL Mean Corpuscular Hemoglobin 30.8 pg Mean Corpuscular Hemoglobin Concent 33.8 g/dl RDW Standard Deviation 42.2 fL RDW Coefficient of Variation 12.6 % Platelet Count 139 K/uL Mean Platelet Volume 11.8 fL Test 12/27/16 15:06 12/27/16 15:17 12/27/16 16:14 12/27/16 16:19 Prothrombin Time 10.1 SECONDS Prothromb Time International Ratio 0.9 Bedside Glucose 156 mg/dl 120 mg/dl Venous Blood pH 7.35 Sodium Level 139 mmol/L Potassium Level 4.7 mmol/L Chloride Level 110 mmol/L Carbon Dioxide Level 26 mmol/L Anion Gap 3.0 mmol/L Blood Urea Nitrogen 10 mg/dl Creatinine 0.92 mg/dl Est Creatinine Clear Calc Drug Dose 86.6 ml/min Estimated GFR () 88.4 Estimated GFR (Non- 76.3 BUN/Creatinine Ratio 10.8 Random Glucose 127 mg/dl Calcium Level 7.9 mg/dl Phosphorus Level 2.4 mg/dl Magnesium Level 2.1 mg/dl Test 12/27/16 17:10 12/27/16 20:13 12/27/16 20:38 12/27/16 23:33 Bedside Glucose 139 mg/dl 299 mg/dl Venous Blood pH 7.39 7.40 Sodium Level 137 mmol/L 139 mmol/L Potassium Level 4.0 mmol/L 3.9 mmol/L Chloride Level 107 mmol/L 111 mmol/L Carbon Dioxide Level 24 mmol/L 24 mmol/L Anion Gap 6.0 mmol/L 4.0 mmol/L Blood Urea Nitrogen 13 mg/dl 13 mg/dl Creatinine 1.10 mg/dl 0.85 mg/dl Est Creatinine Clear Calc Drug Dose 72.5 ml/min 93.8 ml/min Estimated GFR () 71.2 97.3 Estimated GFR (Non- 61.4 83.9 BUN/Creatinine Ratio 11.5 14.7 Random Glucose 286 mg/dl 147 mg/dl Calcium Level 7.9 mg/dl 8.1 mg/dl Phosphorus Level 2.7 mg/dl Magnesium Level 2.0 mg/dl Test 12/28/16 04:13 Venous Blood pH 7.37 Sodium Level 138 mmol/L Potassium Level 4.1 mmol/L Chloride Level 111 mmol/L Carbon Dioxide Level 26 mmol/L Anion Gap 1.0 mmol/L Blood Urea Nitrogen 11 mg/dl Creatinine 0.74 mg/dl Est Creatinine Clear Calc Drug Dose 107.7 ml/min Estimated GFR () 115.0 Estimated GFR (Non- 99.2 BUN/Creatinine Ratio 14.2 Random Glucose 197 mg/dl Calcium Level 8.1 mg/dl Assessment and Plan This is a 41 year old female with a PMH of type 1 diabetes on an insulin pump - presents with DKA Diabetic Ketoacidosis 12/28 patient was initially placed on insulin drip after anion gap closed and BSGs improved; we transitioned from the drip to the insulin pump Ha1c = 8.6%, needs better control good PO intake, labs are back to baseline plan to d/c home with close outpatient PCP follow-up unknown cause of the DKA - should see endocrinology as outpatient; for now follow with Jac Shrestha for insulin pump management 12/27 patient presents with BSGs >600, serum and urinary ketones, +acidosis on ABG, mildly elevated anion gap insulin pump is turned off for now she has been given 2L of fluid in the ER given 10 units of regular insulin will start an insulin pump monitor PRP, Mg, Phos, and venous pH q2 hours for now start fluids, NS + 20meq KCl at 150mL/hr once anion gap closes, we can start clears and advance as tolerated goal BSGs 150-250 pharmacy glycemic control to help transition from insulin drip back to her pump check Ha1c diabetic education Leukocytosis - resolved 12/28 no infectious process noted; UA and CXR negative Leukocytosis was mostly related to dehydration, with fluids, this has resolved 12/27 this seems more likely due to significant dehydration and volume depletion CXR is negative UA shows no sign of infection blood cultures pending received Dapto + Zosyn in the ED will hold off on abx. and recheck CBC after fluid resuscitation DVT ppx subq heparin FULL CODE
--- NOTE | 2016-12-28 08:51 | Discharge Instructions ---
Discharge Instructions Date of Service Dec 28, 2016. Admission Reason for Admission: Diabetic Ketoacidosis Discharge Discharge Diagnosis / Problem: Diabetic Ketoacidosis, type 1 diabetes Discharge Goals Goal(s): Decrease discomfort, Improve function, Diagnostic testing, Therapeutic intervention Activity Recommendations Activity Limitations: resume your previous activity . Instructions / Follow-Up Instructions / Follow-Up Please follow-up with Dr. Park on January 02 at 11:05AM * Your Ha1c is 8.6% - we will need better control of your sugars - please follow -up with Jac Shrestha for insulin pump settings * You may need a referral to endocrinology as an outpatient Current Hospital Diet Patient's current hospital diet: Diabetes Type 1 Diet Discharge Diet Recommended Diet: Diabetes Type 1 Diet Pending Studies Studies pending at discharge: no Laboratory Results Hemoglobin A1c Test 12/27/16 07:30 Range/Units Estimated Average Glucose 200 mg/dl Hemoglobin A1c 8.6 H 4.5-5.6 % Medical Emergencies . Who to Call and When: Medical Emergencies: If at any time you feel your situation is an emergency, please call 911 immediately. . Non-Emergent Contact Non-Emergency issues call your: Primary Care Provider . . "Provider Documentation" section prepared by Oralia Aly. . VTE Core Measure Inpt VTE Proph given/why not?: Unfractionated heparin SQ
--- NOTE | 2016-12-28 08:59 | Discharge Summary ---
Discharge Summary Date of Service Dec 28, 2016. Discharge Summary Admission Date: Dec 27, 2016 at 09:32 Discharge Date: Dec 28, 2016 Discharge Disposition: Home Principal Diagnosis: Diabetic Ketoacidosis Uncontrolled Type 1 Diabetes Medication Reconciliation Continued Medications: Citalopram Hydrobromide (Celexa) 40 Mg Tab 40 MG PO DAILY, TAB Insulin Aspart (novoLOG INSULIN PUMP ) 1 Ea Inj 1 EA N/A ACHS, #1 Simvastatin (Zocor) 20 Mg Tab 20 MG PO DAILY, TAB Admission Information HPI (per Admitting provider): This is a 41 year old female with a PMH of type 1 DM on an insulin pump, hx. of tobacco use disorder with recent cessation about one week prior to arrival presents to the ER with elevated blood sugars, excessive urination, excessive thirst. Patient states that last evening her blood sugars were less than 200; and then a recheck later in the evening; her pump stated that the sugars were unreadable due to being too high. Denies feeling ill prior to this, but stated that she had been excessively urinating all night and very thirsty having to drink lots of water. Other than the polyuria and polydipsia, no other complaints at this time. Upon presentation, she was given 2L of fluid, given 10 units of regular insulin and her BSGs are still >400. Physical Exam (per Admitting): General Appearance: no apparent distress Head: normocephalic, atraumatic Eyes: normal inspection ENT: hearing grossly normal Respiratory/Chest: chest non-tender, lungs clear, normal breath sounds, no respiratory distress, no accessory muscle use Cardiovascular: regular rate, rhythm, no edema, no gallop, no JVD, no murmur , normal peripheral pulses Abdomen/GI: normal bowel sounds, non tender, soft Back: no muscle spasm Extremities/Musculoskelatal: no calf tenderness, normal capillary refill, no pedal edema, + pertinent finding (+pump on her R upper tricep) Neurologic/Psych: strapper II-XII nml as tested, no motor/sensory deficits, alert , normal mood/affect, oriented x 3 Hospital Course This is a 41 year old female with a PMH of type 1 diabetes on an insulin pump - presents with DKA Diabetic Ketoacidosis 12/28 patient was initially placed on insulin drip after anion gap closed and BSGs improved; we transitioned from the drip to the insulin pump Ha1c = 8.6%, needs better control good PO intake, labs are back to baseline plan to d/c home with close outpatient PCP follow-up unknown cause of the DKA - should see endocrinology as outpatient; for now follow with Jac Shrestha for insulin pump management 12/27 patient presents with BSGs >600, serum and urinary ketones, +acidosis on ABG, mildly elevated anion gap insulin pump is turned off for now she has been given 2L of fluid in the ER given 10 units of regular insulin will start an insulin pump monitor PRP, Mg, Phos, and venous pH q2 hours for now start fluids, NS + 20meq KCl at 150mL/hr once anion gap closes, we can start clears and advance as tolerated goal BSGs 150-250 pharmacy glycemic control to help transition from insulin drip back to her pump check Ha1c diabetic education Leukocytosis - resolved 12/28 no infectious process noted; UA and CXR negative Leukocytosis was mostly related to dehydration, with fluids, this has resolved 12/27 this seems more likely due to significant dehydration and volume depletion CXR is negative UA shows no sign of infection blood cultures pending received Dapto + Zosyn in the ED will hold off on abx. and recheck CBC after fluid resuscitation DVT ppx subq heparin FULL CODE Total time spent on discharge = 25 minutes This includes examination of the patient, discharge planning, medication reconciliation, and communication with other providers. Discharge Instructions Please follow-up with Dr. Park on January 02 at 11:05AM * Your Ha1c is 8.6% - we will need better control of your sugars - please follow -up with Jac Shrestha for insulin pump settings * You may need a referral to endocrinology as an outpatient
[2016-12-28] MEDS ORDERED: CITALOPRAM 40 MG TAB PO SCH (09:00)
[2016-12-28] MEDS ORDERED: SIMVASTATIN 20 MG TAB PO SCH (09:00)
[2016-12-28 09:13] VITALS: BP 117/70; PULSE 73; TEMP 36.8; O2SAT 92
== END 2016-12-28 09:51 | disposition home or self-care (01) | DRG 639 ==
LOC: C.EDB 07:08 → C.MED 09:32 → ENRESERV 10:03 → C.MED 21:45
PROVIDERS: ADMIT Family Medicine; ATTEND Family Medicine
DX: E10.10 Type 1 diabetes mellitus with ketoacidosis without coma (principal); D72.829 Elevated white blood cell count, unspecified; Z96.41 Presence of insulin pump (external) (internal); Z79.4 Long term (current) use of insulin; Z79.899 Other long term (current) drug therapy; Z87.891 Personal history of nicotine dependence